=== PATIENT | female | born 1940 ===

== ENCOUNTER 2017-10-28 14:39 | Emergency (ER) | payer MEDICARE ==
[2017-10-28 14:40] VITALS: BMI 23.9
[2017-10-28 14:47] VITALS: TEMP 98.4
--- NOTE | 2017-10-28 15:04 | ED PDOC ---
Arrival/HPI - General Chief Complaint: Trauma Time Seen by Provider: 10/28/17 14:55 Historian: Patient - History of Present Illness Narrative History of Present Illness (Text): 10/28/17 15:02 77yo female with PMhx of hypertension, CAD with pacemaker, Diabetes who present with complaint of right sided ribs pain. The daughter by the bedside states she missed a seat while trying to sit down 3days ago and fell hitting her right sided ribs against the bed railing. states she has been taking Tylenol with relieve. She came to ED for the persistent pain. Pain is worse with movement and inspiration. Past Medical History - Provider Review Nursing Documentation Reviewed: Yes - Infectious Disease Hx of Infectious Diseases: None - Tetanus Immunization Tetanus Immunization: Unknown - Cardiac Hx Cardiac Arrhythmia: Yes (Complete Heart Block) Hx Hypertension: Yes Hx Pacemaker: Yes (Dual Chamber) - Pulmonary Hx Respiratory Disorders: No - Neurological Hx Neurological Disorder: No - HEENT Hx HEENT Disorder: No - Renal Hx Renal Disorder: No - Endocrine/Metabolic Hx Diabetes Mellitus Type 2: Yes - Hematological/Oncological Hx Blood Disorders: No - Integumentary Hx Dermatological Disorder: No - Musculoskeletal/Rheumatological Hx Falls: Yes - Gastrointestinal Hx Gastrointestinal Disorders: No - Genitourinary/Gynecological Hx Genitourinary Disorders: No - Psychiatric Hx Psychophysiologic Disorder: No Hx Substance Use: No - Surgical History Hx Hysterectomy: Yes - Anesthesia Hx Anesthesia: Yes Hx Anesthesia Reactions: No Family/Social History - Physician Review Nursing Documentation Reviewed: Yes Family/Social History: Unknown Family HX Smoking Status: Unknown If Ever Smoked Hx Alcohol Use: No Hx Substance Use: No Allergies/Home Meds Allergies/Adverse Reactions: Allergies Penicillins Allergy (Verified 10/28/17 14:48) RASH Home Medications: Home Meds Medication Instructions Recorded Confirmed Dorzolamide HCl [Trusopt] 1 drop OP BID 12/05/15 10/28/17 Glimepiride [amaRYL] 2 mg PO DAILY 12/05/15 10/28/17 Latanoprost 0.005% Opht [Xalatan 1 drop OU DAILY 12/05/15 10/28/17 Opht] Lisinopril [Zestril] 20 mg PO DAILY 12/05/15 10/28/17 MetFORMIN [glucoPHAGE] 500 mg PO BID 07/01/16 05/25/18 Rosuvastatin Calcium [Crestor] 5 mg PO DAILY 12/05/15 10/28/17 Sitagliptin Phosphate [Januvia] 25 mg PO DAILY 12/05/15 10/28/17 Review of Systems - Physician Review All systems were reviewed & negative as marked: Yes - Review of Systems Constitutional: Normal Eyes: Normal ENT: Normal Respiratory: Normal Cardiovascular: Normal Gastrointestinal: Normal Genitourinary Female: Normal Musculoskeletal: Arthralgias (right ribs pain) Skin: Normal Neurological: Normal Endocrine: Normal Hemo/Lymphatic: Normal Psychiatric: Normal Physical Exam Vital Signs Reviewed: Yes Vital Signs Temp Pulse Resp BP Pulse Ox 10/28/17 16:19 92 H 20 148/75 98 10/28/17 14:43 98.4 F 90 17 158/75 H 98 Temperature: Afebrile Blood Pressure: Normal Pulse: Regular Respiratory Rate: Normal Appearance: Positive for: Well-Appearing, Non-Toxic, Comfortable Pain Distress: None Mental Status: Positive for: Alert and Oriented X 3 - Systems Exam Head: Present: Atraumatic, Normocephalic Pupils: Present: PERRL Extroacular Muscles: Present: EOMI Conjunctiva: Present: Normal Mouth: Present: Moist Mucous Membranes Neck: Present: Normal Range of Motion Respiratory/Chest: Present: Clear to Auscultation, Good Air Exchange, Tender to Palpation (Over the lateral and posterior ribs). No: Respiratory Distress, Accessory Muscle Use, Wheezes, Decreased Breath Sounds, Rales, Retracting, Rhonchi, Tachypneic Cardiovascular: Present: Regular Rate and Rhythm, Normal S1, S2. No: Murmurs Abdomen: No: Tenderness, Distention, Peritoneal Signs Back: Present: Normal Inspection Upper Extremity: Present: Normal Inspection. No: Cyanosis, Edema Lower Extremity: Present: Normal Inspection. No: Edema Neurological: Present: GCS=15, CN II-XII Intact, Speech Normal Skin: Present: Warm, Dry, Normal Color. No: Rashes Psychiatric: Present: Alert, Oriented x 3, Normal Insight, Normal Concentration Medical Decision Making ED Course and Treatment: 10/28/17 16:37 Ribs/Chest xray - No acute fracture/dislocation. No PTX Result was DW the pt. she was DC home with Tramadol. Referred to her PMD. - RAD Interpretation Radiology Orders: 10/28/17 14:56 RIBS RIGHT & PA CHEST [RAD] Stat - Medication Orders Current Medication Orders: Discontinued Medications Ketorolac Tromethamine (Toradol) 60 mg IM STAT STA Stop: 10/28/17 15:34 Last Admin: 10/28/17 16:17 Dose: 60 mg MAR Pain Assessment Document 10/28/17 16:17 OCS (Rec: 10/28/17 16:18 OCS [id number]) Pain Reassessment Is this a pain reassessment? Yes Sleep Is patient sleeping during reassessment? No Presence of Pain Presence of Pain Yes Pain Scale Used Pain Scale Used Numeric Location Left, Right or Bilateral Right Pain Location Body Site Abdomen Description Description Constant Aggravating Factors ADL's IM Administration Charges Document 10/28/17 16:17 OCS (Rec: 10/28/17 16:18 OCS [id number]) Injection Site MAR Injection Site Left Deltoid Charges for Administration # of IM Administrations 1 Disposition/Present on Arrival - Present on Arrival Any Indicators Present on Arrival: No History of DVT/PE: No History of Uncontrolled Diabetes: No Urinary Catheter: No History of Decub. Ulcer: No History Surgical Site Infection Following: None - Disposition Have Diagnosis and Disposition been Completed?: Yes Diagnosis: Sprain of ribs Disposition: HOME/ ROUTINE Disposition Time: 16:40 Patient Plan: Discharge Condition: STABLE Discharge Instructions (ExitCare): Bruised Rib (DC) Additional Instructions: Follow up with your doctor Return to ED for any new or worsening symptoms Prescriptions: traMADol [Ultram] 50 mg PO TID #12 tab Referrals: Oleg Tobar [Primary Care Provider] - Follow up with primary Forms: [employer] (Kazakh)
[2017-10-28] MEDS ORDERED: Oxycodone/Acetaminophen 5/325 mg Tab PO STA (15:12)
[2017-10-28 16:19] VITALS: RESP 20
--- NOTE | 2017-10-28 16:22 | RAD ---
PROCEDURE: Radiographs of the Chest and Right Ribs. HISTORY: Posttraumatic right rib pain COMPARISON: 12/05/2015 single-view chest TECHNIQUE: Frontal radiograph of the chest and multiple oblique radiographs of the right ribs were obtained. FINDINGS: RIGHT RIBS: No fracture or focal lesion visualized. LUNGS: Clear. PLEURA: No pneumothorax or pleural fluid. CARDIOVASCULAR: Position/ configuration of pacemaker radiographic findings to suggest acute or significant cardiovascular disease. OTHER FINDINGS: None. IMPRESSION: Unremarkable radiographs of the chest and right ribs. No right rib fracture.
[2017-10-28 17:07] VITALS: BP 144/78; PULSE 88; O2SAT 99
== END 2017-10-28 16:58 | disposition home or self-care (01) ==
LOC: ED 14:39
DX: S23.41XA Sprain of ribs, initial encounter (principal); W19.XXXA Unspecified fall, initial encounter; I10 Essential (primary) hypertension; E11.9 Type 2 diabetes mellitus without complications; I25.10 Atherosclerotic heart disease of native coronary artery without angina pectoris; Z95.0 Presence of cardiac pacemaker
CPT/HCPCS: 71101; 96372; 99284; J1885

== ENCOUNTER 2018-07-08 09:14 | Outpatient (CLI) | payer MEDICARE | END 2018-07-08 09:15 | disposition home or self-care (01) | LOC: LAB 09:14 ==

== ENCOUNTER 2018-10-04 09:48 | Outpatient (CLI) | payer MEDICARE | END 2018-10-04 09:49 | disposition home or self-care (01) | LOC: LAB 09:48 ==